=== PATIENT | female | born 1975 | race Two or more races ===

== ENCOUNTER 2018-02-18 07:01 | Day surgery (SDC) | payer OTHER | END 2018-02-18 12:15 | disposition home or self-care (01) | LOC: AMB-ENDOS 07:01 | DX: K64.2 Third degree hemorrhoids (principal) ==

== ENCOUNTER 2020-06-28 06:15 | Day surgery (SDC) | payer OTHER | END 2020-06-28 10:40 | disposition home or self-care (01) | LOC: AMB-ENDOS 06:15 → ADM 15:00 → AMB-ENDOS 15:00 | PROVIDERS: ATTEND Colon & Rectal Surgery | DX: D13.1 Benign neoplasm of stomach (principal); K62.89 Other specified diseases of anus and rectum; K64.1 Second degree hemorrhoids; K44.9 Diaphragmatic hernia without obstruction or gangrene; Z20.828 Contact with and (suspected) exposure to other viral communicable diseases ==